=== PATIENT | female | born 1945 | race Caucasian/White ===

== ENCOUNTER → 2018-11-10 | Outpatient (CLI) | payer MEDICARE ==
[~2018-11-10] MED LIST: ASPIRIN 81M81 MG/TA2 PO; CEFTIN500 MG PO; CENTRUM SILVER1 TAB; CORDARONE200 MG/TAB PO; COUMADIN 5MG5 MG/TAB PO; FISH OIL500 MG PO; HYGROTON 2525 MG/TAB; KLOR-CON 1010 MEQ PO; LIPITOR 80MG80 MG PO; PHENERGAN W/CO120 M1 PO; PRESERVISION1 SGL PO; PRINIVIL20 MG PO
== END ==
LOC: MC.RAD 10:53
DX: Z12.31 Encounter for screening mammogram for malignant neoplasm of breast (principal)

== ENCOUNTER → 2019-04-11 | Outpatient (CLI) | payer MEDICARE | LOC: COL.RAD 07:30 | DX: N18.3 Chronic kidney disease, stage 3 (moderate) (principal) ==

== ENCOUNTER → 2019-06-08 | Outpatient (CLI) | payer MEDICARE | LOC: COL.RAD 09:04 | DX: N18.3 Chronic kidney disease, stage 3 (moderate) (principal) | CPT/HCPCS: A9562 ==

== ENCOUNTER 2020-06-22 09:14 | Outpatient (CLI) | payer MEDICARE ==
[~2020-06-22] VITALS: Ht 160 cm; Wt 83.5 kg
[~2020-06-22 09:14] MED LIST changes: -CENTRUM SILVER1 TAB; +CENTRUM SILVER1 TAB PO; -HYGROTON 2525 MG/TAB; +HYGROTON 2525 MG/TAB PO
[2020-06-22] MEDS ORDERED: CARDIZEM SR 60M60 MG PO (09:23)
[2020-06-22 09:26] VITALS: BP 149/84; PULSE 70
[2020-06-22 10:07] VITALS: BP 148/57; PULSE 70
[2020-06-22 10:22] VITALS: BP 158/62; PULSE 69
--- NOTE | 2020-06-22 10:22 | NUR ---
Transferred to [facility] by cart. Bandaid to Lower back CD&I. VSS. Denies pain as long as pt sits up and not laying flat
[2020-06-22 10:37] VITALS: BP 149/59; PULSE 69
[2020-06-22 10:52] VITALS: BP 136/53; PULSE 62
[2020-06-22 11:20] VITALS: BP 130/48; PULSE 65
--- NOTE | 2020-06-22 11:20 | NUR ---
Discharge instructions given
--- NOTE | 2020-06-22 11:30 | NUR ---
Transferred to private car by [email or web address]
== END 2020-06-22 11:30 | disposition home or self-care (01) ==
LOC: COL.RAD 09:14
DX: M54.5 Low back pain (principal)
CPT/HCPCS: Q9965

== ENCOUNTER 2022-06-05 18:48 | Emergency (ER) | payer MEDICARE ==
[~2022-06-05] VITALS: Ht 160 cm; Wt 81.8 kg
[~2022-06-05 18:48] MED LIST changes: +CARDIZEM SR 60M60 MG PO
[2022-06-05 18:58] VITALS: TEMP 100
[2022-06-05 19:41] LABS: BASO % 0.4 % (0.0-2.0); EOS % 0.4 % (0.0-4.0); GRAN # 4.7 K/mm3 (1.4-6.5); GRAN % 64.6 % (42.2-75.2); HEMATOCRIT 38.5 % (37.0-47.0); HEMOGLOBIN 12.3 g/dl (12.5-16.0); LYMPH # 1.5 K/mm3 (1.2-3.4); LYMPH % 19.9 % (20.0-51.0); MEAN CELL VOLUME 92 fl (80.0-100.0); MEAN CORPUSCULAR HEMOGLOBIN 29 pg (27-31); MEAN CORPUSCULAR HGB CONC 32 g/dl (33.0-37.0); MEAN PLATELET VOLUME 9.5 fl (7.4-10.4); MONO # 1.1 K/mm3 (0.1-0.6); MONO % 14.4 % (1.7-9.3); PLATELET COUNT 214 K/mm3 (130-400); REDCELL DISTRIBUTION WIDTH-CV 14.3 % (11.5-14.5)
[2022-06-05 19:46] LABS: INR 1.6 (0.8-3.0); PROTHROMBIN TIME 18.2 SECONDS (9.7-12.8)
[2022-06-05 19:56] LABS: ALBUMIN 3.6 gm/dL (3.4-4.8); BILIRUBIN,TOTAL 0.6 mg/dL (0.2-1.2); CALCIUM 9.1 mg/dL (8.4-10.2); CREATININE, serum 1.07 mg/dL (0.57-1.11); POTASSIUM 4.1 mmol/L (3.5-4.5); TOTAL PROTEIN 6.3 gm/dL (6.2-8.1)
[2022-06-05 20:02] LABS: TROPONIN-I 0.012 ng/mL (0.00-0.033)
[2022-06-05] MEDS ORDERED: TESSALON P100 MG/CAP PO (21:16)
[2022-06-05 22:26] VITALS: BP 132/79; PULSE 76
== END 2022-06-05 22:19 | disposition home or self-care (01) ==
LOC: COL.ER 18:48
PROVIDERS: Emergency Medicine
DX: U07.1 COVID-19 (principal); R05.9 Cough, unspecified; R09.02 Hypoxemia; N18.30 Chronic kidney disease, stage 3 unspecified; Z79.01 Long term (current) use of anticoagulants; Z95.0 Presence of cardiac pacemaker